=== PATIENT | female | born 1940 | race Caucasian/White ===

== ENCOUNTER 2020-12-26 10:01 | Outpatient (CLI) | payer MEDICARE ==
[2021-04-02] MEDS ORDERED: ALIR75PE5 SQ (13:06)
[2021-04-02] MEDS ORDERED: TIOT18CA INH (13:06)
[2021-04-02] MEDS ORDERED: ALBU18HF INH (13:06)
[2021-04-02] MEDS ORDERED: CALC200T3 PO (13:06)
[2021-04-02] MEDS ORDERED: NITR0.4T28 SL (13:06)
[2021-04-02] MEDS ORDERED: [UNRECOGNIZED DRUG - CODE] PO (13:06)
[2021-04-02] MEDS ORDERED: ACET-1600 PO (13:06)
[2021-04-02] MEDS ORDERED: CALC-451 PO (13:06)
[2021-04-02] MEDS ORDERED: METO25TA35 PO (13:06)
[2021-04-04] MEDS ORDERED: INSU100I11 SQ-INSULIN (13:58)
[2021-04-04] MEDS ORDERED: INSU100I13 SQ-INSULIN (13:58)
== END 2020-12-26 23:59 | disposition home or self-care (01) ==
LOC: ROC 10:01
PROVIDERS: ATTEND Radiology Radiation Oncology
DX: C78.02 Secondary malignant neoplasm of left lung (principal)
CPT/HCPCS: 99214; G0463

== ENCOUNTER → 2021-01-20 | Outpatient (CLI) | payer MEDICARE ==
[~2021-01-20] MED LIST: REGADENOSON 0.4 MG/5 ML SYRINGE ONE
== END | disposition home or self-care (01) ==
LOC: CFH 06:51
PROVIDERS: ATTEND Internal Medicine Cardiovascular Disease
DX: I08.3 Combined rheumatic disorders of mitral, aortic and tricuspid valves (principal); I25.10 Atherosclerotic heart disease of native coronary artery without angina pectoris
CPT/HCPCS: 78452; 93017; 93306; A9502; J2785

== ENCOUNTER → 2021-02-10 | Outpatient (CLI) | payer MEDICARE | END | disposition home or self-care (01) | LOC: ROC 09:18 | PROVIDERS: ATTEND Radiology Radiation Oncology | DX: C78.02 Secondary malignant neoplasm of left lung (principal); I25.10 Atherosclerotic heart disease of native coronary artery without angina pectoris | CPT/HCPCS: 99213; G0463 ==

== ENCOUNTER 2021-02-24 03:16 | Emergency (ER) | payer MEDICARE ==
[~2021-02-24] VITALS: Ht 170.2 cm; Wt 79.0 kg
[2021-02-24] MEDS ORDERED: LIDOCAINE-MPF 2%, 2ML SQ ONE (03:30)
--- NOTE | 2021-02-24 03:33 | NUR ---
JUANA FROM HOME [address] [employer]. PT HAD GLF SLIPPING ON FLOOR AND ITTING FRONT LEFT PART OF HEAD. PT HAS LACERATION ONE INCH WIDE WITH BLEEDING CONTROLLED. PT STATES BEING ON BLOOD THINNERS BUT DOESNT KNOW WHICH ONES. PT DENIES WEAKNESS, PAIN, DIZZINESS, DIRECTOR SERVICE, AND SOB. DENIES LOC AND NECK PAIN. PT ATTACHED TO MONITORS, VSS, NADN. A&OX4, BREATHING EVEN AND UNLKABORED, BED IN LOW POSITION, CALL LIGHT WITHIN REACH, RAILS ENGAGED. WCTM
--- NOTE | 2021-02-24 03:34 | NUR ---
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
[2021-02-24] MEDS ORDERED: LIDOCAINE-MPF 2% ,5ML ONE (03:40)
--- NOTE | 2021-02-24 04:16 | NUR ---
PT RESTING IN BED. PT WOUND IRRIGATED AND CLEANSED TO POLICY. ATTACHED TO MONITORS. VSS. NADN. [place]
[2021-02-24] MEDS ORDERED: DIPH,PERTUSS(ACELL),TET VAC/PF 0.5 ML IM-VACC ONE ×2 (04:30→04:58)
[2021-02-24] MEDS ORDERED: NEOSPORIN OINT. PKT 1 PACKET ONE (04:43)
[2021-02-24 05:47] VITALS: BP 164/74
--- NOTE | 2021-02-24 05:58 | NUR ---
Patient/Caregiver given discharge instructions and they have confirmed that they understand the instructions. Patient WHEELCHAIRED. NAD, all questions answered appropriately, denies additional needs at this time. No personal belongings left in room after discharge. PT SON CALLED TO [facility] FOR SAFE DC.
[2021-04-02] MEDS ORDERED: ALIR75PE5 SQ (13:06)
[2021-04-02] MEDS ORDERED: ACET-1600 PO (13:06)
[2021-04-02] MEDS ORDERED: NITR0.4T28 SL (13:06)
[2021-04-02] MEDS ORDERED: [UNRECOGNIZED DRUG - CODE] PO (13:06)
[2021-04-02] MEDS ORDERED: CALC200T3 PO (13:06)
[2021-04-02] MEDS ORDERED: METO25TA35 PO (13:06)
[2021-04-02] MEDS ORDERED: ALBU18HF INH (13:06)
[2021-04-02] MEDS ORDERED: TIOT18CA INH (13:06)
[2021-04-02] MEDS ORDERED: CALC-451 PO (13:06)
[2021-04-04] MEDS ORDERED: INSU100I11 SQ-INSULIN (13:58)
[2021-04-04] MEDS ORDERED: INSU100I13 SQ-INSULIN (13:58)
== END 2021-02-24 06:01 | disposition home or self-care (01) ==
LOC: ED 05:34
DX: S06.0X0A Concussion without loss of consciousness, initial encounter (principal); S01.81XA Laceration without foreign body of other part of head, initial encounter; Z85.841 Personal history of malignant neoplasm of brain; W01.0XXA Fall on same level from slipping, tripping and stumbling without subsequent striking against object, initial encounter; Y93.89 Activity, other specified; Y92.009 Unspecified place in unspecified non-institutional (private) residence as the place of occurrence of the external cause; Y99.8 Other external cause status
CPT/HCPCS: 12051; 70450; 90471; 90715

== ENCOUNTER 2021-03-06 20:32 | Inpatient (IN) | payer MEDICARE ==
[~2021-03-06] VITALS: Ht 170.2 cm; Wt 81.6 kg
--- NOTE | 2021-03-06 20:52 | NUR ---
Code Neuro called @ 2020 Called Neurology @ 2040 Neurology called back @ [address] Burns.
[2021-03-06] MEDS ORDERED: LEVETIRACETAM 1,000 MG in SODIUM CHLORIDE 0.9% 100 ML IV ONE (21:00)
[2021-03-06] MEDS ORDERED: LORazepam 2 MG/ML, 1ML IVPush ONE (21:00)
[2021-03-06] MEDS ORDERED: DEXAMETHASONE 4 MG/ML, 1ML IVPush ONE (21:00)
--- NOTE | 2021-03-06 21:00 | NUR ---
THIS IS A 80F BIB EMS FROM HOME FOR TWO WITNESSED SZ TODAY. NOW PT HAS L SIDED DEFICITS AND FACIAL DROOP. PT ARRIVES A/OX4 AND NO FACIAL DROOP NOTED UPON ARRIVAL. PT BEGAN HAVING SZ UPON EXAM, PT TRANSFER TO T4 AND GIVEN 1MG ATIVAN PER ERP. PT CONNECTED TO ALL MONITORING PT HTN NOTED AND ERP AWARE. PT RESPONDED WELL TO ATIVAN AND POSTICTAL PERIOD VERY SHORT.
--- NOTE | 2021-03-06 21:04 | NUR ---
PT BACK FROM CT AT THIS TIME, PT A/OX'S 4, RESP EVEN UNLABORED NADN, PT TOLERATED SCAN WELL.
[2021-03-06 21:10] LABS: BASOPHILS % (AUTO) 0 % (0-1); EOSINOPHILS % (AUTO) 0 % (1-7); LYMPHOCYTES % (AUTO) 12 % (22-44); MEAN CORPUSCULAR HEMOGLOBIN 32.7 pg (27.0-34.8); MEAN CORPUSCULAR HGB CONC 33.7 g/dL (32.4-35.8); MEAN PLATELET VOLUME 8.4 fL (7.4-10.4); MONOCYTES % (AUTO) 11 % (2-9); NEUTROPHILS % (AUTO) 77 % (42-75); PLATELET COUNT 206 x10^3/uL (130-400); RED BLOOD COUNT 3.89 x10^6/uL (3.82-5.3); RED CELL DISTRIBUTION WIDTH 13.6 % (9.6-15.2)
[2021-03-06 21:11] LABS: ALBUMIN 2.9 g/dL (3.4-5.0); ANION GAP 15 mmol/L (5-15); CHLORIDE 100 mmol/L (98-107)
[2021-03-06] MEDS ORDERED: ONDANSETRON 2MG/ML, 2ML ONE (21:14)
--- NOTE | 2021-03-06 21:14 | NUR ---
PT C/O NAUSEA ERP UPDATED VERBAL ORDER FOR 4MG ZOFRAN AT THIS TIME
--- NOTE | 2021-03-06 21:34 | NUR ---
PT PLACED ON [place] D/T URINARY INCON.
--- NOTE | 2021-03-06 21:48 | NUR ---
FAMILY NOW AT BEDSIDE, PT INTERACTING APPROPRIATELY. PER FAMILY PT RAN OUT OF [facility] TODAY PRIOR TO EVENTS.
--- NOTE | 2021-03-06 21:48 | NUR ---
BOAZ GEORGE (SON) [phone]
--- NOTE | 2021-03-06 22:15 | NUR ---
PT RESTING WITH FAMILY AT BEDSIDE STABLE CONDITION. NADN DENIES PAIN/ ANY NEEDS AT THIS TIME.
[2021-03-06] MEDS ORDERED: INSULIN SINGLE DOSE, ER ONE (22:21)
[2021-03-06] MEDS ORDERED: INSULIN REGULAR 100 UNITS/ML, 3ML VIAL SQ-INSULIN ONE (22:30)
[2021-03-06] MEDS ORDERED: ONDANSETRON 2MG/ML, 2ML IVPush ONE (22:30)
[2021-03-06 22:32] LABS: PH, VENOUS 7.344 pH (7.320-7.420)
[2021-03-06 22:45] LABS: ACETONE, SERUM Negative (Negative)
[2021-03-06] MEDS ORDERED: SODIUM CHLORIDE 0.9% 1,000 ML IV ONE (23:00)
[2021-03-06] MEDS ORDERED: SODIUM CHLORIDE FLUSH 10ML SYR IVF PRN (23:00)
--- NOTE | 2021-03-06 23:30 | NUR ---
PT STS SHE FEELS WET LINENS AND GOWN CHANGED
--- NOTE | 2021-03-06 23:58 | NUR ---
REPORT TO EARLENE RUTH PT READY FOR TRANSFER TO [facility]
[2021-03-07 00:39] VITALS: BP 168/91
[2021-03-07] MEDS ORDERED: LORazepam 2 MG/ML, 1ML IVPush PRN (01:00)
[2021-03-07] MEDS ORDERED: DOCUSATE 100 MG CAPSULE PO PRN (01:00)
[2021-03-07] MEDS ORDERED: ONDANSETRON 2MG/ML, 2ML IVPush PRN (01:00)
[2021-03-07] MEDS ORDERED: MELATONIN 5 MG TABLET PO PRN (01:00)
[2021-03-07] MEDS ORDERED: ACETAMINOPHEN 325 MG TABLET PO PRN (01:00)
[2021-03-07] MEDS ORDERED: hydrALAzine 20 MG/ML, 1ML IVPush PRN (01:00)
[2021-03-07] MEDS: INSULIN LISPRO 100 UNITS/ML, PEN SQ-INSULIN SCH ×5 (03:30→21:21)
[2021-03-07 05:46] LABS: BASOPHILS % (AUTO) 0 % (0-1); EOSINOPHILS % (AUTO) 0 % (1-7); LYMPHOCYTES % (AUTO) 5 % (22-44); MEAN CORPUSCULAR HEMOGLOBIN 32.9 pg (27.0-34.8); MEAN CORPUSCULAR HGB CONC 33.9 g/dL (32.4-35.8); MEAN PLATELET VOLUME 8.1 fL (7.4-10.4); MONOCYTES % (AUTO) 4 % (2-9); NEUTROPHILS % (AUTO) 91 % (42-75); PLATELET COUNT 208 x10^3/uL (130-400); RED BLOOD COUNT 3.48 x10^6/uL (3.82-5.3); RED CELL DISTRIBUTION WIDTH 13.2 % (9.6-15.2)
[2021-03-07 06:00] LABS: ANION GAP 6 mmol/L (5-15); CALCIUM 8.2 mg/dL (8.5-10.1); CHLORIDE 107 mmol/L (98-107)
[2021-03-07 06:01] LABS: CREATININE 1.39 mg/dL (0.55-1.02)
[2021-03-07 06:36] VITALS: BP 161/80
[2021-03-07] MEDS: SODIUM CHLORIDE 0.9% 1,000 ML IV SCH ×2 (06:49→11:30)
[2021-03-07] MEDS: LEVETIRACETAM 1,000 MG in SODIUM CHLORIDE 0.9% 100 ML IV SCH ×2 (09:52→21:00)
[2021-03-07] MEDS: DEXAMETHASONE 4 MG/ML, 1ML IVPush SCH ×3 (10:18→23:14)
[2021-03-07] MEDS ORDERED: [UNRECOGNIZED DRUG - OTHER] INJ (11:32)
[2021-03-07] MEDS ORDERED: TRAM-47 PO (11:32)
[2021-03-07] MEDS ORDERED: LEVO112T2 PO (11:32)
[2021-03-07] MEDS ORDERED: SITA25TA PO (11:32)
[2021-03-07] MEDS ORDERED: METO75TA PO (11:32)
[2021-03-07] MEDS ORDERED: ALLO100T30 PO (11:32)
[2021-03-07] MEDS ORDERED: LEVE500T8 PO (11:32)
[2021-03-07] MEDS ORDERED: HYDR-3237 PO (11:32)
[2021-03-07] MEDS ORDERED: RANO500T2 PO (11:32)
[2021-03-07] MEDS ORDERED: HYDR100T25 PO (11:32)
[2021-03-07] MEDS ORDERED: ROPI0.254 PO (11:41)
[2021-03-07] MEDS ORDERED: LANS15CA5 PO (11:41)
[2021-03-07 12:06] VITALS: BP 168/78
[2021-03-07 15:35] VITALS: BP 148/88
[2021-03-07 19:38] VITALS: BP 159/79
[2021-03-07] MEDS ORDERED: INSULIN GLARGINE 100 UNITS/ML, PEN SQ-INSULIN SCH (21:00)
[2021-03-07] MEDS ORDERED: SODIUM CHLORIDE 0.9%, 500ML IVBOLUS ONE (23:00)
[2021-03-08 01:56] VITALS: BP 153/73
[2021-03-08] MEDS: DEXAMETHASONE 4 MG/ML, 1ML IVPush SCH ×2 (05:30→11:19)
[2021-03-08] MEDS: INSULIN LISPRO 100 UNITS/ML, PEN SQ-INSULIN SCH ×2 (07:35→11:24)
[2021-03-08 07:46] VITALS: BP 163/79
[2021-03-08] MEDS: LEVETIRACETAM 1,000 MG in SODIUM CHLORIDE 0.9% 100 ML IV SCH (10:44)
[2021-03-08] MEDS ORDERED: LEVE500T53 PO (13:17)
[2021-03-08] MEDS ORDERED: DEXA4TAB66 PO (13:22)
[2021-03-08 13:47] VITALS: BP 176/66
[2021-03-08] MEDS ORDERED: LEVETIRACETAM 500 MG TABLET PO SCH (21:00)
== END 2021-03-08 16:06 | disposition home or self-care (01) | DRG 100 ==
LOC: ED 22:45 → EDIP 03-07 00:45 → 5SO 03-07 00:51 → 4NW 03-07 15:00
PROVIDERS: ADMIT Internal Medicine; ATTEND Hospitalist
DX: G40.209 Localization-related (focal) (partial) symptomatic epilepsy and epileptic syndromes with complex partial seizures, not intractable, without status epilepticus (principal); G93.6 Cerebral edema; N17.0 Acute kidney failure with tubular necrosis; E11.10 Type 2 diabetes mellitus with ketoacidosis without coma; C79.31 Secondary malignant neoplasm of brain; C34.90 Malignant neoplasm of unspecified part of unspecified bronchus or lung; E87.2 Acidosis; C50.919 Malignant neoplasm of unspecified site of unspecified female breast; E03.9 Hypothyroidism, unspecified; E78.5 Hyperlipidemia, unspecified; G83.21 Monoplegia of upper limb affecting right dominant side; I10 Essential (primary) hypertension; Z88.8 Allergy status to other drugs, medicaments and biological substances; T38.0X5A Adverse effect of glucocorticoids and synthetic analogues, initial encounter; Z66 Do not resuscitate; Z79.899 Other long term (current) drug therapy; Z85.118 Personal history of other malignant neoplasm of bronchus and lung; Z90.5 Acquired absence of kidney; Y92.89 Other specified places as the place of occurrence of the external cause
CPT/HCPCS: 36415; 70450; 80047; 80048; 82010; 82040; 82803; 82947; 82962; 83735; 85025; 93005; 95819; 96374; 96375; 99285; G0378; J1100; J1953; J2405; J1815; J2060; J7030; J7040

== ENCOUNTER → 2021-04-07 | Outpatient (CLI) | payer MEDICARE ==
[~2021-04-07] MED LIST changes: +ACET-1600 PO; +ALBU18HF INH; +ALIR75PE5 SQ; +ALLO100T30 PO; +CALC-451 PO; +CALC200T3 PO; +DEXA4TAB66 PO; +HYDR-3237 PO; +HYDR100T25 PO; +INSU100I11 SQ-INSULIN; +INSU100I13 SQ-INSULIN; +LANS15CA5 PO; +LEVE500T53 PO; +LEVE500T8 PO; +LEVO112T2 PO; +METO25TA35 PO; +METO75TA PO; +NITR0.4T28 SL; +RANO500T2 PO; -REGADENOSON 0.4 MG/5 ML SYRINGE ONE; +ROPI0.254 PO; +SITA25TA PO; +TIOT18CA INH; +TRAM-47 PO; +[UNRECOGNIZED DRUG - CODE] PO; +[UNRECOGNIZED DRUG - OTHER] INJ
== END | disposition home or self-care (01) ==
LOC: CVU 09:46
PROVIDERS: ATTEND Internal Medicine Hematology & Oncology
DX: C50.919 Malignant neoplasm of unspecified site of unspecified female breast (principal); I08.0 Rheumatic disorders of both mitral and aortic valves; I11.9 Hypertensive heart disease without heart failure; I25.10 Atherosclerotic heart disease of native coronary artery without angina pectoris; E11.9 Type 2 diabetes mellitus without complications; Z85.3 Personal history of malignant neoplasm of breast
CPT/HCPCS: 93306; 93356